=== PATIENT | male | born 1980 | race Caucasian/White ===

== ENCOUNTER 2016-10-22 13:00 | Outpatient (RCR) | payer BC ==
[~2016-10-22 13:00] MED LIST: GABA-490 PO; NAPR550T PO; OXYC-197 PO; TIZA4TAB11 PO
== END 2016-11-08 | disposition home or self-care (01) ==
LOC: LAB 13:00
PROVIDERS: ATTEND Urology
DX: Z30.8 Encounter for other contraceptive management (principal)
CPT/HCPCS: 89321